=== PATIENT | female | born 1950 | race Caucasian/White ===

== ENCOUNTER 2021-07-11 22:16 | Emergency (ER) | payer MEDICARE, BC, MEDICAID ==
[~2021-07-11] VITALS: Ht 167.6 cm; Wt 82.0 kg
[~2021-07-11 22:16] MED LIST: ULTRAM50 MG OR
[2021-07-11 22:20] VITALS: BP 135/73
[2021-07-11 22:30] VITALS: BP 131/61
[2021-07-11 22:45] VITALS: BP 134/68
[2021-07-11 22:56] LABS: HEMATOCRIT 39.4 % (37.0-47.0); HEMOGLOBIN 12.6 g/dl (12.0-16.0); IMMATURE GRANULOCYTES 0.2 % (0.0-5.0); MEAN CELL VOLUME 95.6 fL CALC (80.0-100.0); MEAN CORPUSCULAR HGB 30.6 pG CALC (26.0-32.0); NEUT# 8.96 thou/uL (2.00-7.15); RED BLOOD COUNT 4.12 mill/uL (4.20-5.60); RED CELL DISTRI WIDTH 13.2 % (11.5-15.5)
[2021-07-11 23:15] VITALS: BP 131/63
[2021-07-11 23:15] LABS: ALBUMIN 3.6 g/dL (3.2-5.0); ALKALINE PHOSPHATASE 66 u/l (38-126); BUN 15 mg/dL (8-23); BUN/CREATININE RATIO 11 (12-20 (CALC)); CARBON DIOXIDE 27 mmol/l (22-30); CHLORIDE 100 mmol/l (95-108); CREATININE 1.3 mg/dL (0.5-1.0); GFR FOR AFR.AMER. 49 ML/MIN (>=60 (CALC)); GFR OTHER RACES 40 ML/MIN (>=60 (CALC)); POTASSIUM 3.9 mmol/l (3.5-5.1); SGOT/AST 23 u/l (9-36); TOTAL PROTEIN 6.8 g/dL (6.3-8.2)
[2021-07-11 23:16] LABS: ANION GAP 10 (6-22 (CALC)); BILIRUBIN, TOTAL 0.6 mg/dL (0.0-1.4); SODIUM 133 mmol/l (137-146)
[2021-07-11 23:31] VITALS: BP 132/64
[2021-07-11 23:45] VITALS: BP 118/53
[2021-07-12] VITALS (9 sets, daily range): BP systolic 106–125; BP diastolic 55–79
[2021-07-12 00:01] LABS: MYOGLOBIN 93 ng/mL (0 - 62)
[2021-07-12] MEDS ORDERED: ONDANSETRON4 MG PO (00:42)
[2021-07-12] MEDS ORDERED: MECLIZINE25 MG PO (00:42)
== END 2021-07-12 02:10 | disposition home or self-care (01) ==
LOC: ED 22:16
PROVIDERS: Family Medicine
DX: R42 Dizziness and giddiness (principal); S09.90XA Unspecified injury of head, initial encounter; R11.0 Nausea; W18.39XA Other fall on same level, initial encounter; Y92.009 Unspecified place in unspecified non-institutional (private) residence as the place of occurrence of the external cause; Z85.038 Personal history of other malignant neoplasm of large intestine; Z20.822 Contact with and (suspected) exposure to COVID-19